=== PATIENT | male | born 1950 | race Caucasian/White ===

== ENCOUNTER 2020-05-13 20:35 | Emergency (ER) | payer MEDICARE, OTHER ==
[2020-05-13 20:46] LABS: Anion Gap 10 mmol/L (10-20); Carbon Dioxide 21 mmol/L (23-31); Chloride 109 mmol/L (98-107); Potassium 4.1 mmol/L (3.5-5.1); Sodium 136 mmol/L (136-145)
[2020-05-13 20:47] LABS: Albumin 3.6 g/dL (3.4-4.8); Alkaline Phosphatase 135 U/L (40-110); BUN (Urea Nitrogen) 18 mg/dL (8.4-25.7); Bilirubin, Total 0.5 mg/dL (0.2-1.2); Calc. Creatinine Clearance 0 mL/min (70-130); Calcium 8.6 mg/dL (7.8-10.44); Globulin 3.2 g/dL (2.4-3.5); Glucose 146 mg/dL (83-110); Protein, Total 6.8 g/dL (5.8-8.1)
[2020-05-13 20:48] LABS: ALT (SGPT) 31 U/L (8-55); AST (SGOT) 41 U/L (5-34); CK (CPK) 453 U/L (30-200)
[2020-05-13 20:49] LABS: CKMB 6.4 ng/mL (0-6.6)
[2020-05-13 20:52] LABS: #Monocytes 1.7 10x3/uL (0.0-1.1); #Neutrophils 14.9 10x3/uL (1.5-8.4); %Basophils 0.2 % (0.0-2.0); %Eosinophils 0.1 % (0.0-6.0); %Lymphocytes 4.9 % (18.0-47.0); %Monocytes 9.5 % (0.0-10.0); %Neutrophils 84.6 % (40.0-75.0); Hemoglobin 12.7 g/dL (13.5-17.5); Mean Corpuscular HGB CONC 33.9 g/dL (32.0-36.0); Mean Corpuscular Hemoglobin 30.9 pg (27.0-33.0); Mean Corpuscular Volume 91.2 fl (81.2-95.1); Mean Platelet Volume 11.8 fl (7.4-10.4); RBC Distribution Width 15.8 % (11.5-14.5); Red Blood Cell (RBC) Count 4.11 10x6/uL (4.32-5.72); White Blood Cell (WBC) Count 17.6 10x3/uL (3.5-10.5)
[2020-05-13 20:53] LABS: Platelet Count 198 10x3/uL (150-450)
[2020-05-13] MEDS ORDERED: Morphine 4 MG/ML VIAL ONE (20:54)
[2020-05-13] MEDS ORDERED: Ketorolac Tromethamine 30 MG/ML VIAL ONE (20:54)
[2020-05-13 23:03] LABS: SARS-CoV-2 NAA Rapid Test Not Detected (NotDetected)
== END 2020-05-14 00:02 | disposition short-term general hospital (02) ==
LOC: CSHERS 20:35
DX: S22.41XA Multiple fractures of ribs, right side, initial encounter for closed fracture (principal); S22.21XA Fracture of manubrium, initial encounter for closed fracture; S17.9XXA Crushing injury of neck, part unspecified, initial encounter; E11.9 Type 2 diabetes mellitus without complications; F17.210 Nicotine dependence, cigarettes, uncomplicated; W55.22XA Struck by cow, initial encounter
CPT/HCPCS: 71045; 71260; 72125; 80053; 82550; 82553; 84484; 85025; J1885; J2270; U0002

== ENCOUNTER 2024-02-04 17:03 | Emergency (ER) | payer MEDICARE ==
[2024-02-04 18:07] LABS: #Basophils 0.03 10x3/uL (0.0-0.2); #Eosinophils 0.04 10x3/uL (0.0-0.5); #Monocytes 1.95 10x3/uL (0.0-1.1); #Neutrophils 5.54 10x3/uL (1.5-8.4); %Basophils 0.3 % (0.0-2.0); %Eosinophils 0.4 % (0.0-6.0); %Lymphocytes 24.2 % (18.0-47.0); %Monocytes 19.4 % (0.0-10.0); %Neutrophils 55.3 % (40.0-75.0); Hematocrit 31.6 % (38.8-50.0); Hemoglobin 10.3 g/dL (13.5-17.5); Mean Corpuscular HGB CONC 32.6 g/dL (32.0-36.0); Mean Corpuscular Hemoglobin 30.5 pg (27.0-33.0); Mean Corpuscular Volume 93.5 fL (81.2-95.1); Mean Platelet Volume 11.1 fL (7.4-10.4); Platelet Count 501 10x3/uL (150-450); RBC Distribution Width 17.8 % (11.5-14.5); Red Blood Cell (RBC) Count 3.38 10x6/uL (4.32-5.72)
[2024-02-04 18:29] LABS: ALT (SGPT) 20 U/L (8-55); AST (SGOT) 21 U/L (5-34); Albumin 2.4 g/dL (3.4-4.8); Alkaline Phosphatase 101 U/L (40-110); Anion Gap 11 mmol/L (10-20); BUN (Urea Nitrogen) 52 mg/dL (8.4-25.7); Bilirubin, Total 0.4 mg/dL (0.2-1.2); Calc. Creatinine Clearance 0 mL/min (70-130); Calcium 8.3 mg/dL (7.8-10.44); Carbon Dioxide 16 mmol/L (23-31); Chloride 110 mmol/L (98-107); Estimated GFR 30; Globulin 3.9 g/dL (2.4-3.5); Glucose 235 mg/dL (83-110); Protein, Total 6.3 g/dL (5.8-8.1); Sodium 133 mmol/L (136-145)
[2024-02-04] MEDS ORDERED: Ketorolac Tromethamine 30 MG (1 mL) VIAL ONE (22:25)
[2024-02-04] MEDS ORDERED: cefTRIAXone (ROCEPHIN) 2 GM VIAL ONE (22:26)
[2024-02-04] MEDS ORDERED: Lidocaine 1% MPF 2 ML VIAL ONE (22:27)
[2024-02-04] MEDS ORDERED: VANCOMYCIN 1.25 GM/250 ML BAG 1.25 GM in Premix 1 BAG IVPB SCH (23:00)
[2024-02-04 23:56] LABS: Body Fluid Source Synovial Fluid
[2024-02-04 23:57] LABS: BF Color Red; Clarity Cloudy/Turbid (Clear)
[2024-02-04 23:59] LABS: Tube # EDTA
[2024-02-05 00:21] LABS: BF Segmented Neutrophils 96 %; Cell Count Non Hematic 2 %; Lymphocytes 2 %
[2024-02-05] MEDS ORDERED: Insulin Lispro 100 UNIT/ML 10 ML VIAL SC SCH (00:30)
== END 2024-02-05 03:33 | disposition short-term general hospital (02) ==
LOC: CSHERS 17:03
DX: L02.413 Cutaneous abscess of right upper limb (principal); L03.113 Cellulitis of right upper limb; L08.9 Local infection of the skin and subcutaneous tissue, unspecified; I12.9 Hypertensive chronic kidney disease with stage 1 through stage 4 chronic kidney disease, or unspecified chronic kidney disease; E11.22 Type 2 diabetes mellitus with diabetic chronic kidney disease; N18.30 Chronic kidney disease, stage 3 unspecified; F17.210 Nicotine dependence, cigarettes, uncomplicated
CPT/HCPCS: 36415; 36416; 80053; 82945; 83605; 84157; 85025; 87040; 87205; 89051; J0696; J1885; J3370